=== PATIENT | male | born 1960 | race Caucasian/White ===

== ENCOUNTER 2024-05-27 10:27 | Inpatient (IN) | payer MEDICARE, OTHER ==
[~2024-05-27] VITALS: Ht 167.6 cm; Wt 85.3 kg
[2024-05-27 11:22] LABS: BASOPHILS % (AUTO) 0.3 % (0-1); EOSINOPHILS % (AUTO) 0.3 % (0-6); HEMATOCRIT 48.2 % (42.0-52.0); HEMOGLOBIN 15.8 g/dl (14.0-17.9); LYMPHOCYTES # (AUTO) 0.7 X10'3 (1.1-4.8); LYMPHOCYTES % (AUTO) 4.4 % (21-51); MEAN CORPUSCULAR HEMOGLOBIN 31.4 PG (27.0-31.0); MEAN CORPUSCULAR HGB CONC 32.7 g/dL (33.0-36.5); MEAN CORPUSCULAR VOLUME 95.9 FL (78-98); MEAN PLATELET VOLUME 9.4 FL (7.4-10.4); MONOCYTES # (AUTO) 1.1 X10'3 (0-0.9); MONOCYTES % (AUTO) 6.8 % (2-12); NEUTROPHILS # (AUTO) 13.8 X10'3 (1.8-7.7); NEUTROPHILS % (AUTO) 88.2 % (42-75); PLATELET COUNT 247 X10'3 (140-440); RED BLOOD COUNT 5.03 X10'6 (4.70-6.10); RED CELL DISTRIBUTION WIDTH 15.2 % (11.5-14.5); WHITE BLOOD COUNT 15.6 X10'3 (4.5-11.0)
[2024-05-27 11:36] LABS: ALBUMIN 3.6 G/DL (3.4-5.0); ANION GAP 14 (8-16); BLOOD UREA NITROGEN 50 MG/DL (7-18); BUN/CREATININE RATIO 28.2 (10.0-20.0); CALCIUM 9.3 MG/DL (8.5-10.1); CHLORIDE 102 MMOL/L (99-107); CREATININE 1.77 MG/DL (0.60-1.10); GLUCOSE 223 MG/DL (70-104); POTASSIUM 4.5 MMOL/L (3.5-5.1); SODIUM 137 MMOL/L (135-145); TOTAL CARBON DIOXIDE 21.3 MMOL/L (24-32); eCRCL 38 ML/MIN; eGFR 39 ML/MIN
[2024-05-27 11:37] LABS: TOTAL CELLS COUNTED 100
[2024-05-27 11:38] LABS: PLATELET ESTIMATE NORMAL
[2024-05-27] MEDS: BUPIVAcaine/PF 2.5 mg/ml (0.25%) 30ml vial IJ ONE (11:43)
[2024-05-27] MEDS ORDERED: CLINDAMYCIN 600mg IN NS 50ML 50 ML IV ONE (11:50)
[2024-05-27] MEDS: clindamycin 600mg/D5W 50ml 50 ML IV ONE (12:01)
[2024-05-27] MEDS: HYDROmorphone 1 mg/ml syringe IV ONE (12:03)
[2024-05-27] MEDS: BUPIVAcaine/PF 2.5mg/ml (0.25%) 10ml vial IJ ONE (12:03)
[2024-05-27] MEDS: TETanus/Pertussis (Acell)/Diphther VAC/PF (Tdap-Adult) 0.5ml syringe IMVAC ONE (12:03)
[2024-05-27] MEDS ORDERED: magnesium sulf-water 4G/100mL 100 ML IV PRN (14:30)
[2024-05-27] MEDS ORDERED: acetaminophen 325mg tablet PO PRN (14:30)
[2024-05-27] MEDS ORDERED: ondansetron/PF 4mg/2ml inj IV PRN (14:30)
[2024-05-27] MEDS ORDERED: mag hydrox/Alum hydrox/simeth 30ml oral suspension PO PRN (14:30)
[2024-05-27] MEDS ORDERED: HYDROcodone/acetaminophen 5mg/325mg tablet PO PRN (14:30)
[2024-05-27] MEDS ORDERED: potassium Cl 20 mEq SR tablet PO PRN ×2 (14:30)
[2024-05-27] MEDS ORDERED: magnesium hydroxide 30ml (MOM) UD suspension PO PRN (14:30)
[2024-05-27] MEDS ORDERED: morphine 2 MG/ML inj. syringe IV PRN ×2 (14:30)
[2024-05-27] MEDS ORDERED: HYDROcodone/acetaminophen 10/325mg tab PO PRN (14:30)
[2024-05-27] MEDS ORDERED: magnesium Cl slow-release 64mg tablet PO PRN (14:30)
[2024-05-27] MEDS ORDERED: potassium Cl 40MEQ/1/2NS 520ml 520 ML IV PRN (14:30)
[2024-05-27] MEDS ORDERED: magnesium sulf-water 2g/50mL 50 ML IV PRN (14:30)
[2024-05-27] MEDS: normal saline 1000ml 1,000 ML IV ONE (14:35)
[2024-05-27 14:52] LABS: APTT 31 SECONDS (22-32); PROTHROMBIN TIME 10.9 SECONDS (9.0-12.0)
[2024-05-27] MEDS: ringers solution, lacted 1,000 ML IV ONE ×2 (14:53→19:45)
[2024-05-27 15:07] LABS: ALANINE AMINOTRANSFERASE 44 U/L (12-78); ALBUMIN/GLOBULIN RATIO 0.7 (1.1-1.5); ALKALINE PHOSPHATASE 87 IU/L (46-116); ASPARTATE AMINO TRANSFERASE 21 U/L (10-37); BILIRUBIN,TOTAL 0.7 MG/DL (0.1-1.0); MAGNESIUM 2.4 MG/DL (1.5-2.4); PRO BRAIN NATRIURETIC PEPTIDE 3977 PG/ML (0-125); TOTAL PROTEIN 8.5 G/DL (6.4-8.2)
[2024-05-27 15:13] LABS: HEMOGLOBIN A1C 7.9 % (4.5-6.2)
[2024-05-27] MEDS: metoprolol tartrate 1mg/ml inj IV ONE (15:36)
[2024-05-27] MEDS: diltiazem 5mg/ml 5ml inj. IV ONE (16:46)
[2024-05-27] MEDS: piperacillin/tazo 3.375gm/50ml 50 ML IV SCH (17:25)
[2024-05-27] MEDS: vancomycin/NS 1 GM ADD-VANTAGE 250 ML IV SCH (17:25)
[2024-05-27 17:45] LABS: BILIRUBIN,URINE NEGATIVE (Neg); CLARITY,URINE CLEAR (Clear); COLOR,URINE YELLOW (Yellow); GLUCOSE, URINE >=1000 mg/dl (Neg); KETONES,URINE NEGATIVE (Neg); LEUKOCYTE ESTERASE ,URINE NEGATIVE (Neg); NITRITES, URINE NEGATIVE (Neg); OCCULT BLOOD,URINE NEGATIVE (Neg); PH,URINE 5.5 (4.8-8.0); PROTEIN,URINE 30 mg/dl (Neg); UROBILINOGEN,URINE 0.2 E.U/dL (0.2-1.0)
[2024-05-27 17:52] LABS: UA COLLECTION TYPE VOIDED
[2024-05-27 17:54] LABS: URINE AMPHETAMINE SCREEN NEGATIVE (Neg); URINE BARBITUATE SCREEN NEGATIVE (Neg); URINE BENZODIAZEPINES SCREEN NEGATIVE (Neg); URINE CANNABINOID SCREEN POSITIVE (Neg); URINE COCAINE SCREEN NEGATIVE (Neg); URINE METHADONE SCREEN NEGATIVE (Neg); URINE OPIATE SCREEN NEGATIVE (Neg); URINE PHENCYCLIDINE SCREEN NEGATIVE (Neg)
[2024-05-27 17:55] LABS: BACTERIA,URINE NONE SEEN /HPF (Neg); RBC,URINE 0-2 /HPF (0-2); SQUAMOUS EPITHELIAL CELL,UR FEW /LPF (FEW); WBC,URINE 0-4 /HPF (0-4)
[2024-05-27] MEDS ORDERED: dextrose 50%-water 50ml dispensing syringe IV PRN ×2 (18:00)
[2024-05-27] MEDS ORDERED: glucagon, human recombinant 1mg kit SUBCUT PRN (18:00)
[2024-05-27] MEDS ORDERED: DEXTROSE 15 GM of carb/4 tabs (each vial/BOTTLE has 4 tablets) PO PRN ×2 (18:00)
[2024-05-27] MEDS: docusate sod 100mg capsule PO SCH (20:00)
[2024-05-27] MEDS: K and/or MAG REPLACEMENT MC SCH (20:00)
[2024-05-27] MEDS: INSULIN LISPRO 100 UNIT/ML INSULN.PEN MULTI-DOSE SQ SCH (21:35)
[2024-05-27] MEDS: insulin glargine (Lantus) pen - multi-dose SQ SCH (21:36)
[2024-05-27 22:00] VITALS: BP 142/85; PULSE 89; RESP 17; TEMP 97.7; O2SAT 96
[2024-05-28] VITALS (11 sets, daily range): BP systolic 111–166; BP diastolic 60–96; PULSE 58–101; RESP 15–20; TEMP 97–97.7; O2SAT 94–99
[2024-05-28 06:46] LABS: BASOPHILS % (AUTO) 0.5 % (0-1); EOSINOPHILS # (AUTO) 0.1 X10'3 (0-0.9); EOSINOPHILS % (AUTO) 1.2 % (0-6); HEMATOCRIT 37.7 % (42.0-52.0); HEMOGLOBIN 12.5 g/dl (14.0-17.9); LYMPHOCYTES # (AUTO) 0.5 X10'3 (1.1-4.8); LYMPHOCYTES % (AUTO) 6.3 % (21-51); MEAN CORPUSCULAR HGB CONC 33.1 g/dL (33.0-36.5); MEAN CORPUSCULAR VOLUME 93.8 FL (78-98); MEAN PLATELET VOLUME 8.9 FL (7.4-10.4); MONOCYTES # (AUTO) 0.6 X10'3 (0-0.9); MONOCYTES % (AUTO) 7.3 % (2-12); NEUTROPHILS # (AUTO) 7.4 X10'3 (1.8-7.7); NEUTROPHILS % (AUTO) 84.7 % (42-75); PLATELET COUNT 188 X10'3 (140-440); RED BLOOD COUNT 4.02 X10'6 (4.70-6.10); RED CELL DISTRIBUTION WIDTH 14.7 % (11.5-14.5); WHITE BLOOD COUNT 8.7 X10'3 (4.5-11.0)
[2024-05-28 06:58] LABS: APTT 29 SECONDS (22-32); PROTHROMBIN TIME 10.9 SECONDS (9.0-12.0)
[2024-05-28] MEDS: aspirin 81mg, enteric-coated 1 TAB TABLET.DR PO SCH (07:13)
[2024-05-28 07:28] LABS: ALANINE AMINOTRANSFERASE 28 U/L (12-78); ALBUMIN 2.6 G/DL (3.4-5.0); ALBUMIN/GLOBULIN RATIO 0.8 (1.1-1.5); ALKALINE PHOSPHATASE 62 IU/L (46-116); ANION GAP 10 (8-16); ASPARTATE AMINO TRANSFERASE 11 U/L (10-37); BILIRUBIN,TOTAL 0.6 MG/DL (0.1-1.0); BLOOD UREA NITROGEN 37 MG/DL (7-18); CALCIUM 8.3 MG/DL (8.5-10.1); CHLORIDE 112 MMOL/L (99-107); CHOL/HDL RATIO 3.4 (0.00-4.99); CHOLESTEROL 131 MG/DL (0-200); CREATININE 1.32 MG/DL (0.60-1.10); GLUCOSE 141 MG/DL (70-104); HDL CHOLESTEROL 38 MG/DL (35-60); LDL CHOLESTEROL 72 MG/DL (50-100); MAGNESIUM 2.1 MG/DL (1.5-2.4); POTASSIUM 4.1 MMOL/L (3.5-5.1); SODIUM 141 MMOL/L (135-145); THYROID STIMULATING HORMONE 1.27 ulU/ml (0.34-4.50); TOTAL CARBON DIOXIDE 19.5 MMOL/L (24-32); TRIGLYCERIDES 106 MG/DL (20-135); eCRCL 51 ML/MIN; eGFR 55 ML/MIN
[2024-05-28] MEDS: ringers solution, lacted 1,000 ML IV SCH (13:08)
[2024-05-28] MEDS ORDERED: METF-438 PO (14:32)
[2024-05-28] MEDS ORDERED: METO200T37 PO (14:32)
[2024-05-28] MEDS ORDERED: ATOR-2 PO (14:32)
[2024-05-28] MEDS ORDERED: SPIR25TA5 PO (14:32)
[2024-05-28] MEDS ORDERED: PANT40TA54 PO (14:32)
[2024-05-28] MEDS ORDERED: FLO0.4C PO (14:32)
[2024-05-28] MEDS ORDERED: APIX5TAB3 PO (14:32)
[2024-05-28] MEDS ORDERED: GLIP-299 PO (14:32)
[2024-05-28] MEDS ORDERED: INSU100V41 (15:12)
[2024-05-28] MEDS ORDERED: TORS5TAB11 PO (15:14)
[2024-05-28] MEDS ORDERED: CHOL1CAP16 PO (15:15)
[2024-05-28] MEDS ORDERED: ZINC220T3 PO (15:16)
[2024-05-29 02:00] VITALS: BP 131/71; PULSE 56; RESP 16; TEMP 97.3; O2SAT 96
[2024-05-29 06:22] LABS: BASOPHILS # (AUTO) 0.1 X10'3 (0-0.2); BASOPHILS % (AUTO) 0.8 % (0-1); EOSINOPHILS # (AUTO) 0.3 X10'3 (0-0.9); EOSINOPHILS % (AUTO) 3.4 % (0-6); HEMOGLOBIN 12.6 g/dl (14.0-17.9); LYMPHOCYTES # (AUTO) 0.6 X10'3 (1.1-4.8); LYMPHOCYTES % (AUTO) 7.1 % (21-51); MEAN CORPUSCULAR HEMOGLOBIN 30.6 PG (27.0-31.0); MEAN CORPUSCULAR HGB CONC 32.2 g/dL (33.0-36.5); MEAN PLATELET VOLUME 9.1 FL (7.4-10.4); MONOCYTES # (AUTO) 0.6 X10'3 (0-0.9); MONOCYTES % (AUTO) 7.8 % (2-12); NEUTROPHILS # (AUTO) 6.6 X10'3 (1.8-7.7); NEUTROPHILS % (AUTO) 80.9 % (42-75); PLATELET COUNT 188 X10'3 (140-440); RED CELL DISTRIBUTION WIDTH 14.9 % (11.5-14.5); WHITE BLOOD COUNT 8.2 X10'3 (4.5-11.0)
[2024-05-29 06:35] LABS: APTT 27 SECONDS (22-32); PROTHROMBIN TIME 10.7 SECONDS (9.0-12.0)
[2024-05-29 06:40] LABS: ALANINE AMINOTRANSFERASE 31 U/L (12-78); ALBUMIN 2.4 G/DL (3.4-5.0); ALBUMIN/GLOBULIN RATIO 0.7 (1.1-1.5); ALKALINE PHOSPHATASE 61 IU/L (46-116); ANION GAP 8 (8-16); ASPARTATE AMINO TRANSFERASE 14 U/L (10-37); BILIRUBIN,TOTAL 0.4 MG/DL (0.1-1.0); BLOOD UREA NITROGEN 26 MG/DL (7-18); BUN/CREATININE RATIO 20.2 (10.0-20.0); CALCIUM 8.2 MG/DL (8.5-10.1); CHLORIDE 110 MMOL/L (99-107); CREATININE 1.29 MG/DL (0.60-1.10); GLUCOSE 217 MG/DL (70-104); MAGNESIUM 1.9 MG/DL (1.5-2.4); PHOSPHORUS 2.8 MG/DL (2.3-4.5); POTASSIUM 4.2 MMOL/L (3.5-5.1); SODIUM 141 MMOL/L (135-145); TOTAL CARBON DIOXIDE 22.7 MMOL/L (24-32); TOTAL PROTEIN 5.8 G/DL (6.4-8.2); eCRCL 52 ML/MIN; eGFR 56 ML/MIN
[2024-05-29 07:00] VITALS: BP 154/88; PULSE 70; RESP 13; TEMP 97.2; O2SAT 93
[2024-05-29 08:00] VITALS: RESP 13; O2SAT 94
[2024-05-29] MEDS: EMPAGLIFLOZIN 10 MG TABLET PO SCH (08:54)
[2024-05-29] MEDS: spironolactone 25 MG tablet PO SCH (09:01)
[2024-05-29] MEDS: metoprolol succinate 25mg (24-HOUR) SR. Tablet PO SCH (09:02)
[2024-05-29 11:00] VITALS: BP 142/91; PULSE 103; RESP 16; TEMP 97.3; O2SAT 100
[2024-05-29] MEDS: ciprofloxacin lact 400MG/200ML 200 ML IV SCH (12:28)
[2024-05-29 15:00] VITALS: BP 142/84; PULSE 56; RESP 19; TEMP 97.3; O2SAT 98
[2024-05-29] MEDS ORDERED: LACT1CAP26 PO (17:41)
[2024-05-29] MEDS ORDERED: CIPR-259 PO (17:41)
[2024-05-29] MEDS ORDERED: ASPI-1071 PO (17:49)
[2024-05-29] MEDS ORDERED: EMPA10TA PO (17:49)
[2024-05-30] MEDS ORDERED: VANCOMYCIN LEVEL IV ONE (14:30)
== END 2024-05-29 19:00 | disposition home or self-care (01) | DRG 871 ==
LOC: ER 10:28 → ED HOLD 13:40 → PCU 3S 18:48
PROVIDERS: ADMIT Family Medicine; ATTEND Family Medicine
PROC: 0H9GXZZ Drainage of Left Hand Skin, External Approach (ICD-10-PCS; principal; 2024-05-27)
DX: A41.9 Sepsis, unspecified organism (principal); N17.0 Acute kidney failure with tubular necrosis; I50.20 Unspecified systolic (congestive) heart failure; L02.512 Cutaneous abscess of left hand; E87.20 Acidosis, unspecified; L03.012 Cellulitis of left finger; I48.0 Paroxysmal atrial fibrillation; E11.9 Type 2 diabetes mellitus without complications; G47.33 Obstructive sleep apnea (adult) (pediatric); M65.842 Other synovitis and tenosynovitis, left hand
CPT/HCPCS: 10060; 36415; 71045; 73130; 73218; 80053; 80061; 80305; 81001; 82948; 83036; 83605; 83735; 83880; 84100; 84145; 84443; 84484; 85007; 85025; 85610; 85651; 85730; 87040; 87070; 87077; 87081; 87186; 90471; 90715; 93005; 93306; 96361; 96365; 96367; 96372; 96375; 99285; A6266; A6446; A6449; G0378; J0744; J1815; J2543; J3370; J3490; J7030; J7040; J7120